=== PATIENT | female | born 1940 | race Asian ===

== ENCOUNTER 2017-04-02 12:10 | Inpatient (IN) | payer OTHER ==
[~2017-04-02] VITALS: Ht 152.4 cm; Wt 56.9 kg
[2017-04-02 12:10] VITALS: BP 151/65
[~2017-04-02 12:10] MED LIST: ATENOLOL 100MG100 MG PO; HYDROCHLOROTHIA50 MG PO; MIRALAX255 GM PO; MULTIPLE SUPPLEMENTS; NORCO 5-325 TA1 EACH PO; NOVOLIN 70100 UNIT/5; NOVOLIN R100 UNIT/1; PHENERGAN 25 MG25 M1 PO; VALIUM2 MG PO; ZOCOR 20 MG TAB20 M1 PO; ZOFRAN ODT4 MG PO
[2017-04-02 13:35] LABS: ABSOLUTE NEUTROPHILS 5.1 thou/uL (1.4-8.2); BASOPHILS 0.6 % (0.0-2.0); EOSINOPHILS 0.3 % (0.0-3.0); HEMATOCRIT 38.1 % (37.0-47.0); HEMOGLOBIN 13.4 gm/dL (12.0-15.0); LYMPHOCYTES 21.3 % (24.0-44.0); MCH 32.6 pg (26.0-34.0); MCHC 35.3 g/dL (28.0-37.0); MCV 92.3 fL (80.0-100.0); PLATELET COUNT 155 thou/uL (150-400); POLYS 72.8 % (36.0-66.0); RBC 4.13 mil/uL (4.20-5.00); RDW 12.3 % (10.5-14.5); WBC 7.1 thou/uL (4.0-11.0)
[2017-04-02 13:39] LABS: MANUAL DIFF NO
[2017-04-02 13:46] LABS: CALCIUM 9.6 mg/dL (8.5-10.1); CREATININE 0.9 mg/dL (0.6-1.0)
[2017-04-02 15:33] LABS: ALBUMIN 3.8 g/dL (3.4-5.0); ALKALINE PHOSPHATASE 31 U/L (46-116); DIRECT BILIRUBIN < 0.1 mg/dL (<0.1-0.3); SGOT 30 U/L (15-37); SGPT 27 U/L (30-65); TOTAL BILIRUBIN 0.5 mg/dL (<0.1-1.0); TOTAL PROTEIN 7.8 g/dL (6.4-8.2)
[2017-04-02 17:11] VITALS: BP 134/52
[2017-04-02 17:20] VITALS: BP 123/54
[2017-04-03] MEDS ORDERED: NAMENDA 10 MG T10 MG PO (09:53)
[2017-04-03 09:58] VITALS: BP 123/54
== END 2017-04-03 15:52 | disposition home or self-care (01) | DRG 637 ==
LOC: ER 12:10 → EROBS 16:33 → 4E 16:33
PROVIDERS: Emergency Medicine; Nurse Practitioner
DX: E11.649 Type 2 diabetes mellitus with hypoglycemia without coma (principal); G93.41 Metabolic encephalopathy; I10 Essential (primary) hypertension; F03.90 Unspecified dementia, unspecified severity, without behavioral disturbance, psychotic disturbance, mood disturbance, and anxiety; E87.6 Hypokalemia; R00.1 Bradycardia, unspecified; Z79.899 Other long term (current) drug therapy; Z88.4 Allergy status to anesthetic agent
CPT/HCPCS: 10183